=== PATIENT | female | born 1995 | race Caucasian/White ===

== ENCOUNTER 2017-03-29 01:35 | Emergency (ER) | payer SELFPAY ==
[~2017-03-29] VITALS: Ht 160 cm; Wt 60.0 kg
[2017-03-29 01:51] VITALS: BP 126/58; PULSE 110; RESP 22; TEMP 98.9; O2SAT 98
[2017-03-29] MEDS ORDERED: ANXIETY (01:56)
[2017-03-29] MEDS ORDERED: DEPRESSION (01:56)
[2017-03-29] MEDS ORDERED: SODIUM CHLOR 0.9% 1000 ML INJ 1,000 ML IV ONE ×2 (02:00→03:00)
[2017-03-29] MEDS ORDERED: ONDANSETRON HCL 4 MG/2 ML VIAL IV PUSH ONE (02:00)
[2017-03-29] MEDS ORDERED: HALOPERIDOL LACTATE 5 MG/ML AMP IV PUSH ONE (02:15)
[2017-03-29 02:33] LABS: BICARBONATE 25.2 MEQ/L (21.0-32.0); POTASSIUM 4.3 MEQ/L (3.5-5.1)
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
[2017-03-29 06:35] VITALS: BP 96/54; PULSE 77; RESP 16; O2SAT 100
[2017-03-29 08:20] VITALS: BP 99/52; PULSE 85; RESP 20; O2SAT 100
== END 2017-03-29 11:27 | disposition home or self-care (01) ==
LOC: NEPD 01:35
DX: F10.920 Alcohol use, unspecified with intoxication, uncomplicated (principal); Z72.0 Tobacco use
CPT/HCPCS: 51702; 80048; 80307; 96361; 96374; 99285; J2405; J7030